=== PATIENT | female | born 1990 | race Caucasian/White ===

== ENCOUNTER → 2021-10-08 08:59 | Outpatient (CLI) | payer OTHER, SELFPAY ==
--- NOTE | 2021-10-08 09:01 | DI.MRI.S_ITS ---
PROCEDURE: MR THORACIC SPINE WO CON INDICATIONS: assess status of T9 compression fx after fall 6mths back TECHNIQUE: Noncontrast sagittal T1 spine echo and T2 fast spin echo, sagittal STIR, and T2 fast spin echo through the thoracic spine. COMPARISON: None. FINDINGS: Image quality: Excellent. Alignment and Curvature: There is normal bony alignment. Bone Marrow: T9 compression fracture probably with depression of the superior endplate, but without significant height loss is noted. No marrow edema present. No retropulsed fracture fragment or canal stenosis. Spinal Cord: Visualized spinal cord is normal in size and signal. Paraspinous Soft Tissues: No paravertebral masses. Miscellaneous: On axial images, central canal and foramina appear widely patent at all scanned levels. IMPRESSION: Healing T9 compression fracture without canal stenosis Approved by: Bear Yancey M.D. on 10/08/2021 at 9:49
== END ==
PROVIDERS: PCP Pediatrics; Referring Provider Pediatrics; Visit Provider Pediatrics
DX: S22.070D Wedge compression fracture of T9-T10 vertebra, subsequent encounter for fracture with routine healing (principal); X58.XXXD Exposure to other specified factors, subsequent encounter
CPT/HCPCS: 72146

== ENCOUNTER → 2021-10-24 11:30 | Outpatient (CLI) | payer OTHER, SELFPAY ==
--- NOTE | 2021-10-24 11:34 | DI.RAD.S_ITS ---
PROCEDURE: XR THORACIC SPINE 2V INDICATIONS: Compression fracture of T9 vertebra TECHNIQUE: Lateral views of the thoracic spine were acquired in flexion and extension. COMPARISON: None. FINDINGS: Bones: No fractures or dislocations. No suspicious bony lesions. No acute compression fractures of the imaged spine. Chronic appearing anterior compression deformity at T8. Mild multilevel mid and lower thoracic spondylosis. There is preservation of normal bony alignment between flexion and extension views. Soft tissues: No paravertebral stripe thickening. IMPRESSION: Thoracic spine without acute osseous abnormalities. Preservation of normal bony alignment between flexion and extension views. Chronic appearing anterior compression deformity of the T8 vertebral body with mild multilevel mid and lower thoracic spondylosis. Dictated by: Ry Lara M.D. on 10/24/2021 at 12:28 Approved by: Ry Lara M.D. on 10/24/2021 at 12:30
== END ==
PROVIDERS: PCP Pediatrics; Referring Provider Physician Assistant Medical; Visit Provider Physician Assistant Medical
DX: S22.070A Wedge compression fracture of T9-T10 vertebra, initial encounter for closed fracture (principal); M47.814 Spondylosis without myelopathy or radiculopathy, thoracic region
CPT/HCPCS: 72070

== ENCOUNTER → 2022-04-11 12:19 | Outpatient (CLI) | payer OTHER, SELFPAY ==
[2022-04-11 13:18] LABS: Add Manual Diff / Slide Review NO; Basophils Absolute Auto 0 /uL (0-100); Basophils Percent Auto 0.2 % (0-2); Eosinophils Absolute Auto 100 /uL (0-450); Eosinophils Percent Auto 1.9 % (2-4); Hematocrit 36.3 % (36-46); Hemoglobin 12.1 g/dL (12.0-16.0); Lymphocytes Absolute Auto 1300 /uL (1100-4500); Lymphocytes Percent Auto 25.8 % (25-40); Mean Corpuscular HGB Conc 33.4 % (30-36); Mean Corpuscular Hemoglobin 27.9 PG (26-34); Mean Corpuscular Volume 83.4 fL (80-100); Monocytes Absolute Auto 200 /uL (0-900); Monocytes Percent Auto 3.3 % (3-14); Neutrophils Absolute Auto 3500 /uL (1500-7000); Neutrophils Percent Auto 68.8 % (50-75); Platelet Count 219 X10^3/uL (150-400); Red Blood Cell Count 4.35 X10^6/uL (4.0-5.2); Red Cell Distribution Width 13.9 % (11.6-14.8); White Blood Cell Count 5.1 X10^3/uL (4.5-11.0)
[2022-04-11 13:40] LABS: Alanine Aminotransferase 19 IU/L (<35); Albumin 4.5 g/dL (3.5-5.0); Albumin Globulin Ratio 1.6 (1.0-2.8); Alkaline Phosphatase 43 U/L (38-126); Aspartate Aminotransferase 21 IU/L (14-36); Bilirubin Total 0.4 mg/dL (0.2-1.3); Bilirubin Unconjugated 0.2 mg/dL (0.0-1.1); Globulin 2.8 g/dL (1.7-4.1); HEMOLYSIS < 15 (0-50); Total Protein 7.3 g/dL (6.3-8.2)
[2022-04-11 13:42] LABS: Alanine Aminotransferase 19 IU/L (<35); Albumin 4.5 g/dL (3.5-5.0); Albumin Globulin Ratio 1.6 (1.0-2.8); Alkaline Phosphatase 44 U/L (38-126); Aspartate Aminotransferase 21 IU/L (14-36); Bilirubin Total 0.3 mg/dL (0.2-1.3); Blood Urea Nitrogen 7 mg/dL (7-17); Calcium 8.8 mg/dL (8.4-10.2); Carbon Dioxide 29 mmol/L (22-32); Chloride 103 mmol/L (98-107); Cholesterol 234 mg/dL (140-199); Estimated Glomerular Filt Rate > 60 mL/min (>60); Globulin 2.8 g/dL (1.7-4.1); Glucose 89 mg/dL (70-100); HDL Cholesterol 54 mg/dL (40-60); HEMOLYSIS < 15 (0-50); LDL Cholesterol Calculated 148 mg/dL (<100); Potassium 3.7 mmol/L (3.4-5.1); Sodium 140 mmol/L (137-145); Total Protein 7.3 g/dL (6.3-8.2); Triglycerides 162 mg/dL (35-150)
[2022-04-11 14:11] LABS: TSH w/ Reflex to FT4 2.16 uIU/mL (0.47-4.68)
== END ==
PROVIDERS: Pediatrics; PCP Family Medicine; Referring Provider Podiatrist; Visit Provider Podiatrist
DX: B35.3 Tinea pedis (principal); E78.9 Disorder of lipoprotein metabolism, unspecified; S22.000A Wedge compression fracture of unspecified thoracic vertebra, initial encounter for closed fracture; T78.40XA Allergy, unspecified, initial encounter; Z83.49 Family history of other endocrine, nutritional and metabolic diseases
CPT/HCPCS: 36415; 80053; 80061; 80076; 84443; 85025